=== PATIENT | female | born 1945 | race African-American/Black ===

== ENCOUNTER 2017-01-28 11:22 | Emergency (ER) | payer MEDICARE, MEDICAID ==
[~2017-01-28] VITALS: Ht 154.9 cm; Wt 104.3 kg
[2017-01-28 11:50] VITALS: BP 138/78
[2017-01-28 12:32] LABS: Basophils # (auto) 0 uL; Basophils % (auto) 0.1 % (0.0-2.0); DEFINITIVE VIEW TRANSMISSION; Eosinophils # (auto) 0.1 uL; Eosinophils % (auto) 1.5 % (0.0-7.0); Hematocrit 32.7 % (36.0-46.0); Hemoglobin 10.2 g/dL (12.2-16.2); Lymphocytes # (auto) 1.9 uL; Mean Corpuscular Hemoglobin 25.1 pg (28.0-32.0); Mean Corpuscular Hgb Conc. 31.4 g/dL (32.0-36.0); Mean Corpuscular Volume 80.2 fL (80.0-100.0); Mean Platelet Volume 9.2 fL (7.4-10.4); Monocytes # (auto) 0.4 uL; Neutrophils # (auto) 6.3 uL; Neutrophils % (auto) 71.4 % (37.0-80.0); Platelet Count (auto) 369 10^3/uL (140-450); White Blood Cell 8.8 10^3/uL (4.4-10.8)
[2017-01-28 12:47] LABS: Red Cell Distribution Width 21.5 % (11.6-16.0)
[2017-01-28 13:13] LABS: Albumin 3.4 g/dL (3.4-5.0); BUN/Creatinine Ratio 18.7; Bilirubin, Total 0.3 mg/dL (0.2-1.0); Potassium 4.2 mmol/L (3.5-5.1); Total Protein 8.8 g/dL (6.4-8.2)
[2017-01-28 13:52] LABS: Platelet Estimate Adequate
[2017-01-28 13:54] LABS: Anisocytosis Slight
== END 2017-01-28 14:30 | disposition left against medical advice (07) ==
LOC: ER 11:27
DX: R06.02 Shortness of breath (principal); R10.9 Unspecified abdominal pain; Z53.21 Procedure and treatment not carried out due to patient leaving prior to being seen by health care provider
CPT/HCPCS: 36415; 71010; 80053; 85025; 93005